=== PATIENT | female | born 1940 | race Caucasian/White ===

== ENCOUNTER → 2021-09-04 16:00 | Outpatient (CLI) | payer MEDICARE, OTHER, SELFPAY ==
--- NOTE | 2021-09-04 16:45 | MRI_ITS ---
STUDY: MRI LUMBAR SPINE WITHOUT CONTRAST REASON FOR EXAM: Female, 81 years old. STENOSIS TECHNIQUE: Standardized fat and water weighted pulse sequences were obtained in the sagittal and axial planes. COMPARISON: None FINDINGS: T12-L1: Normal endplates. Mild disc bulge. Normal bilateral facet joints. Normal central canal and bilateral lateral recesses. Normal bilateral intervertebral neural foramina. Normal lumbar lordosis. Bilateral L5 pars defects with grade 1 anterolisthesis on S1. Dextroscoliosis centered on L2. Normal conus medullaris that terminates at the level of L2 L1-2: Normal endplates. Disc bulge. Mild bilateral facet arthrosis.. Normal central canal and bilateral lateral recesses. Normal bilateral intervertebral neural foramina. L2-3: MODIC type II endplate change. Disc height loss and bulge with ligamentum flavum buckling. Mild bilateral facet arthrosis. Mild/moderate spinal canal stenosis with crowding of the left more than right lateral recesses. Normal bilateral intervertebral neural foramina. L3-4: MODIC type II endplate change. Disc height loss and bulge. Mild bilateral facet arthrosis. Mild neural foraminal stenosis and crowding of the right more than left lateral recesses. Normal bilateral intervertebral neural foramina. L4-5: MODIC type II endplate change. Disc height loss and posterior osteophytic ridging. Mild bilateral facet arthropathy. Mild spinal canal stenosis with crowded bilateral lateral recesses. Mild right neural foraminal stenosis. L5-S1: Endplate edema. Disc bulge and ligamentum flavum buckling. Mild bilateral facet arthropathy. Mild spinal canal stenosis. Severe right and moderate left neural foraminal stenosis. Normal visualized sacral ala. There is mild paraspinal muscular atrophy. Right renal cyst. MRI/Spine Lumbar (Routine) IMPRESSION: Severe right and moderate left neural foraminal stenosis at L5-S1. Multilevel mild to moderate spinal canal stenosis, most prominent at L2-3, and multilevel lateral recess crowding. Bilateral L5 pars defects. Extensive degenerative change detailed above. Electronically Signed: Barber Louise MD at 4:25 EDT Tel , Service support ,
== END ==
PROVIDERS: Referring Provider Anesthesiology Pain Medicine; Visit Provider Anesthesiology Pain Medicine
DX: M54.16 Radiculopathy, lumbar region (principal)
CPT/HCPCS: 72148

== ENCOUNTER → 2021-10-29 12:52 | Outpatient (CLI) | payer MEDICARE, OTHER, SELFPAY ==
--- NOTE | 2021-10-29 13:00 | RAD_ITS ---
STUDY: XR Shoulder Min 2 Views REASON FOR EXAM: Female, 81 years old. PAIN TECHNIQUE: XR Shoulder Min 2 Views left COMPARISON: None. 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 There is degenerative arthrosis of the acromioclavicular joint without inferior osseous spur formation. Normal acromion. Normal humeral head and visualized proximal humerus. The soft tissue structures are unremarkable. Normal visualized pulmonary apex. RAD/Shoulder min 2 Views IMPRESSION: There is degenerative arthrosis of the acromioclavicular joint without inferior osseous spur formation. 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 Electronically Signed: Lon Hamilton MD at 16:10 EST , Service support ,
== END ==
PROVIDERS: Referring Provider Anesthesiology Pain Medicine; Visit Provider Anesthesiology Pain Medicine
DX: M25.512 Pain in left shoulder (principal)
CPT/HCPCS: 73030

== ENCOUNTER 2022-01-16 13:02 | Outpatient (CLI) | payer MEDICARE, OTHER, SELFPAY ==
--- NOTE | 2022-01-16 13:15 | MRI_ITS ---
STUDY: MRI LEFT SHOULDER REASON FOR EXAM: Left shoulder pain and limited range of motion for approximately 8 months. TECHNIQUE: Standardized fat and water weighted pulse sequences were obtained in all 3 orthogonal planes. COMPARISON: Radiographs 10/29/2021. FINDINGS: There is mild supraspinatus/infraspinatus tendinosis (T2 coronal images 7-11) without discrete tendon tear. There is mild subscapularis tendinosis (T2 axial image 11) without discrete tendon tear. Normal teres minor tendon. Normal supraspinatus muscle. Normal infraspinatus muscle. Normal subscapularis muscle. Normal teres minor muscle. There is advanced glenohumeral arthrosis with marginal osteophytes of the humeral head, subchondral cystic change and bone edema of the humeral head and glenoid, and chondral loss (T2 coronal images 9-12). There is posterior subluxation of the glenohumeral joint (T2 axial image 13). There is a small glenohumeral joint effusion with synovitis (T2 coronal image 15). Normal intracapsular long biceps tendon. There is degeneration of the labrum. There is acromioclavicular arthrosis without substantial undersurface osteophytes (T2 sagittal image 8). There is a Type I morphology (flat undersurface), with a neutral orientation. There is no subacromial-subdeltoid bursal fluid. Normal visualized coracohumeral and coracoacromial ligaments. Normal deltoid muscle. Normal trapezius muscle. MRI/Upper Ext Joint Only(Routine) IMPRESSION: Mild supraspinatus, infraspinatus and subscapularis tendinosis without demonstrated rotator cuff tear. 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 Acromioclavicular arthrosis. Small joint effusion with synovitis. Electronically Signed: Demetirus Temple MD at 8:57 EST ,
== END 2022-01-16 23:59 | disposition home or self-care (01) ==
PROVIDERS: Referring Provider Anesthesiology Pain Medicine; Visit Provider Anesthesiology Pain Medicine
DX: M25.512 Pain in left shoulder (principal)
CPT/HCPCS: 73221

== ENCOUNTER 2023-07-25 10:53 | Emergency (ER) | payer MEDICARE, OTHER, SELFPAY ==
[2023-07-25] VITALS (7 sets, daily range): BP systolic 150–183; BP diastolic 78–87; PULSE 69–79; RESP 14–19; TEMP 36.1; O2SAT 100; BMI 25.2
--- NOTE | 2023-07-25 11:39 | EDS_ITS ---
HPI History of Present Illness Chief Complaint: Hypertension Onset/Context/Timing Onset: Days (2) Context: Sudden Onset Timing: Continuous Quality: Aching Location: Right shoulder and upper arm Worsened by: Standing, moving Relieved by: Nothing Narrative Narrative: Patient presents with pain in her right shoulder and arm that has been constant for the past 2 days. Patient states she was getting up from a chair and felt some pain in her arm. Patient states it was a dull at that time. Patient states that the next day when she woke up her pain was sharp and aching. Patient states it starts in the right shoulder and radiates to her right upper arm. Patient states it is worse with standing and with moving. Patient denies any paresthesias or weakness. Patient states her arm feels weak at times due to the pain. [facility] Medical History (Updated 07/25/23 @ 13:[address] Markell Mcdonough, ) Hypercholesteremia Hypertension Medical History no medical history no medical history Home Medications Toprol Xl (Beta Skylar) 50 mg PO QHS 10/24/16 [History Last Taken 10/26/16 09:00] aspirin 81 mg chewable tablet 81 mg PO DAILY@0800 10/24/16 [History Last Taken 10/26/16 08:00] atorvastatin 40 mg tablet 80 mg PO QHS 10/24/16 [History Last Taken 10/23/16 22:30] isosorbide mononitrate 30 mg tablet,extended release 24 hr 30 mg PO DAILY 10/24/16 [History Last Taken 10/26/16 09:00] lisinopril 10 mg tablet 10 mg PO DAILY 10/24/16 [History Last Taken 10/26/16 09:00] acetaminophen 500 mg tablet 1,000 mg (2 x 500 mg) PO Q8 10/31/16 [Rx Last Taken Unknown] hydrocodone-acetaminophen 5-325mg 5mg-325mg 1 tab PO Q6H PRN PRN Pain 3 days #10 TABLETS 07/25/23 [Rx Last Taken Unknown] Allergy/AdvReac Type Severity Reaction Status Date / Time hydrocodone Allergy change in Verified 07/25/23 11:03 mental status Sulfa (Sulfonamide Allergy Hives Verified 07/25/23 11:03 Antibiotics) Surgical History (Updated 07/25/23 @ 11:[address] Markell Mcdonough DO) History of total replacement of left shoulder joint Hx of cardiac cath Social History Smoking Status: Never smoker ROS ROS ED Constitutional Constitutional ED: Denies chills or fever(s) Eyes Eyes: Denies blurry vision or change in vision ENT ENT ED: Denies rhinorrhea or sore throat Cardiovascular Cardiovascular: Denies chest pain or palpitations Respiratory/Chest Respiratory/Chest: Denies cough or dyspnea Gastrointestinal Gastrointestinal: Denies nausea or vomiting Genitourinary Genitourinary ED: Denies dysuria or hematuria Musculoskeletal Musculoskeletal: Reports back pain and neck pain Integumentary Denies abscess or rash Neurologic Neurologic: Denies headache(s) or weakness Allergic/Immunologic Allergic/Immunologic ED: Denies mouth swelling or urticaria EXAM Physical Exam Const Vital Signs: 07/25/23 10:55 07/25/23 11:08 07/25/23 11:10 Temperature 96.9 F L Temperature Source Temporal Pulse Rate 79 69 Respiratory Rate 18 17 Respiratory Effort Normal Non-Labored Respiratory Pattern Normal Blood Pressure 177/79 H 183/84 H Blood Pressure Mean 111 117 Pulse Ox 100 Oxygen Delivery Method Room Air Room Air 07/25/23 11:15 07/25/23 11:16 07/25/23 11:36 Temperature Temperature Source Pulse Rate 71 70 Respiratory Rate 14 19 H Respiratory Effort Normal Non-Labored Respiratory Pattern Blood Pressure 164/81 H 165/79 H Blood Pressure Mean 108 107 Pulse Ox Oxygen Delivery Method Room Air Room Air 07/25/23 13:00 Temperature Temperature Source Pulse Rate 71 Respiratory Rate 19 H Respiratory Effort Respiratory Pattern Blood Pressure 150/78 H Blood Pressure Mean 102 Pulse Ox Oxygen Delivery Method Room Air Positive well nourished and well developed General Appearance ED: well developed and NAD HEENT Reports moist mucous membranes Neck supple and no JVD Resp normal respiratory effort and clear to auscultation bilaterally Cardio regular rate, regular rhythm and no murmurs GI normal to inspection, nondistended, normoactive bowel sounds and non-tender Palpation: soft Back/Spine Back/Spine Narrative: There is tenderness over the right cervical paraspinal muscles and right trapezius muscle. There is no midline tenderness. There is no bony crepitance or step-off. Range of motion was slightly limited in all motions of the cervical spine secondary to pain. Extremity normal to inspection Extremity Narrative: There is tenderness to palpation over the right shoulder. There is no edema or ecchymosis. There is no bony crepitance or step-off. There is full range of motion. There is no reproducible tenderness over the upper arm. Radial pulses are equal bilaterally. Strength is 5/5 in the upper extremities bilaterally. There are no sensory deficits noted. General Extremety ED: Yes tenderness; Negative for edema General Extremity: Negative for edema Neuro oriented x3, CN's II-XII intact bilaterally and no sensory deficits noted Sensorium / Orientation: alert Motor Exam: strength 5/5 throughout Psych mental status grossly normal Skin no rashes or lesions noted MDM MDM MDM Narrative Medical decision making narrative: Differential diagnosis includes radiculopathy, hypertensive urgency, and arthritis. CT scan of the cervical spine will be obtained to assess for degenerative changes, fracture, and spondylolisthesis. CBC will be obtained to assess for leukocytosis and anemia. Basic metabolic profile will be obtained to assess for electrolyte abnormality and renal function. High-sensitivity troponin will be obtained to assess for cardiac ischemia. Lab Data Attestation: I reviewed the patient's lab results. Lab results narrative: CBC was reviewed and was within normal limits. Basic metabolic profile was reviewed and was within normal limits. High-sensitivity troponin was reviewed and was normal. Labs: Laboratory Results - last 24 hr 07/25/23 11:58 WBC 6.4 RBC 4.24 Hgb 12.8 Hct 39.9 MCV 94.1 MCH 30.2 MCHC 32.1 RDW Std Deviation 43.8 RDW Coeff of Yesi 12.7 Plt Count 152 MPV 10.2 Immature Gran % (Auto) 0.200 Neut % (Auto) 75.5 H Lymph % (Auto) 16.1 L [place] % (Auto) 7.3 Eos % (Auto) 0.3 Baso % (Auto) 0.6 Absolute Neuts (auto) 4.8 Absolute Lymphs (auto) 1.03 Nucleated RBC % 0 Sodium 139 Potassium 4.3 Chloride 108 H Carbon Dioxide 26.0 Anion Gap 5 BUN 24 H Creatinine 1.06 H Estim Creat Clear Calc 28.88 Est GFR (MDRD) Af Amer 64 Est GFR (MDRD) Non-Af 53 L BUN/Creatinine Ratio 22.6 H Glucose 108 H Calcium 9.4 Troponin I High Sens 6 Radiography Diagnostic Testing: Clinical Impression(s) from Imaging Studies Cervical Spine CT 07/25/23 11:45 IMPRESSION: Multilevel degenerative changes, as described above. Diffuse heterogeneous enlargement of the thyroid gland. Electronically Signed: Zelalem Gee MD at 12:27 EDT , CT scan of the cervical spine was obtained. There are degenerative changes. Mostly at the level of C3-C4, C4-C5, and C5-C6. There is moderate degree of neuroforaminal stenosis that is worse on the right. There is no acute fracture. This was interpreted by the radiologist and was also independently reviewed by myself. Treatment and Re-Evaluation :: Patient's blood pressure improved after arrival to the emergency department. Repeat blood pressure was 150/78. Patient was advised of her findings. Patient was advised that this most likely a cervical radiculopathy. Patient states she can take hydrocodone but thinks it was oxycodone that caused her to have an altered mental status. Patient states she took Vicodin after her shoulder surgery and tolerated it well. Patient was given a prescription for a short c ourse of Vicodin. Patient was instructed to use ice to the area. Patient was instructed to follow-up with her primary care physician in 5 to 7 days. Patient understood and was agreeable with the plan. All questions were answered. Discharge Plan Triage Chief Complaint: Hypertension Other Complaint: Upper Extremity Injury ED Provider: Markell Mcdonough Dx/Rx/DC Orders Clinical Impression: Cervical radiculopathy, Degenerative disc disease, cervical Instructions: ED Radiculopathy, Cervical Prescriptions: New hydrocodone-acetaminophen [hydrocodone-acetaminophen] 5-325 mg tablet 1 tab PO Q6H PRN PRN (Reason: Pain) 3 Days Qty: 10 0RF No Action atorvastatin 40 MG tablet 80 mg PO QHS Patient Comments: treat high cholesterol isosorbide mononitrate 30 MG tablet 30 mg PO DAILY Patient Comments: prevent chest pain lisinopril 10 MG tablet 10 mg PO DAILY Patient Comments: high blood pressure Toprol Xl (Beta Skylar) 50 mg PO QHS Patient Comments: high blood pressure aspirin 81 MG tablet,chewable 81 mg PO DAILY@0800 acetaminophen 500 MG tablet 1,000 mg PO Q8 0RF Primary Care Provider: CLARISSE SMITH Referrals: CLARISSE SMITH [Other] - 5-7 Days NOT,DEFINED [Non-Staff] - Disposition Disposition: Home, Self Care
--- NOTE | 2023-07-25 11:45 | CT_ITS ---
STUDY: CT CERVICAL SPINE WITHOUT CONTRAST REASON FOR EXAM: Female, 83 years old. 2 day history of right arm pain. RADIATION DOSAGE (If Supplied By Facility): CTDIvol = ( 14.42 ) mGy, DLP = ( 276.33 ) mGycm TECHNIQUE: High resolution transaxial imaging was performed without contrast material. Sagittal and coronal images were reconstructed. Individualized dose optimization techniques were used for this CT. COMPARISON: None FINDINGS: Normal craniovertebral junction. There are degenerative changes of the anterior atlantoaxial articulation. Normal odontoid process. There is straightening of the normal cervical lordosis. Multilevel spondylosis. C2-3: Normal endplates. Normal disc height and morphology. Normal central canal and intervertebral neuroforamina. C3-4: Marked degree of disc space narrowing. Uncovertebral arthrosis. Moderate bilateral neuroforaminal stenosis worse on the right side. C4-5: Marked degree of disc space narrowing and spondylosis. Uncovertebral arthrosis. Moderate degree of bilateral neural foraminal stenosis as well as left sided central canal stenosis due to large posterior osteophyte. C5-6: Marked degree of disc space narrowing and spondylosis. Uncovertebral arthrosis. Posterior spondylosis. Bilateral neural foraminal and central canal stenosis. C6-7: Moderate degree of disc space narrowing. Spondylosis. C7-T1: Normal endplates. Normal disc height and morphology. Normal central canal and intervertebral neuroforamina. Atherosclerotic plaque formation of the carotid bifurcations. Diffuse heterogeneous enlargement of the thyroid gland. CT/Spine Cervical without Contras IMPRESSION: Multilevel degenerative changes, as described above. Diffuse heterogeneous enlargement of the thyroid gland. Electronically Signed: Zelalem Gee MD at 12:27 EDT ,
[2023-07-25 12:04] LABS: Absolute Lymphocyte Count 1.03 X10^3/uL (0.83-4.51); Absolute Neutrophil Count 4.8 X10^3/uL (2.0-7.7); Basophil# 0.04 X10^3/uL; Basophil% 0.6 % (0-1); Eosinophil# 0.02 X10^3/uL; Eosinophils% 0.3 % (0-5); Hematocrit 39.9 % (37-47); Hemoglobin 12.8 g/dL (12.0-15.0); Lymphocyte # 1.03 X10^3/ul (0.83-4.51); Lymphocyte % 16.1 % (19-41); Mean Corp Hgb Conc 32.1 g/dL (32-36); Mean Corpuscular Hgb 30.2 pg (27.0-32.0); Mean Corpuscular Volume 94.1 fL (81-99); Mean Platelet Vol. 10.2 fl (6.2-12.0); Monocyte# 0.47 X10^3/uL; Monocyte% 7.3 % (0-10); NRBC Flagged by Analyzer 0 % (0-5); Neutrophil # 4.83 X10^3/uL (2.7-7.7); Neutrophil % 75.5 % (47-70); Platelet Count 152 K/mm3 (150-450); RBC Distribution Width CV 12.7 % (11.6-14.6); RBC Distribution Width SD 43.8 fl (35.1-43.9); Red Blood Count 4.24 M/mm3 (4.2-5.4); White Blood Count 6.4 K/mm3 (4.4-11.0)
[2023-07-25 12:19] LABS: Anion Gap 5 (5-15); BUN 24 mg/dL (7-18); BUN/Creat Ratio 22.6 RATIO (10-20); Calcium,Total 9.4 mg/dL (8.5-10.1); Chloride 108 mmol/L (98-107); Creatinine, Serum 1.06 mg/dL (0.55-1.02); EST Glomerular Filtration Rate 53 mL/min (>60); Est Glom Filt Rate - Afr Amer 64 mL/min (>60); Estimated Creatinine Clearance 28.88 ml/min; Glucose 108 mg/dL (74-106); Potassium 4.3 mmol/L (3.5-5.1); Sodium Level 139 mmol/L (136-145); Troponin-I HS 6 pg/mL (3.0-54.0)
== END 2023-07-25 14:14 | disposition home or self-care (01) ==
PROVIDERS: Emergency Provider Emergency Medicine; Visit Provider Emergency Medicine
DX: M50.10 Cervical disc disorder with radiculopathy, unspecified cervical region (principal); I10 Essential (primary) hypertension
CPT/HCPCS: 72125; 80048; 84484; 85025; 99285; A4216

== ENCOUNTER → 2024-11-29 | Outpatient (CLI) | payer MEDICARE, OTHER, SELFPAY ==
[2024-11-29 11:41] LABS: Hematocrit 39.1 % (37-47); Hemoglobin 12.6 g/dL (12.0-15.0); Mean Corp Hgb Conc 32.2 g/dL (32-36); Mean Corpuscular Hgb 30.9 pg (27.0-32.0); Mean Corpuscular Volume 95.8 fL (81-99); Mean Platelet Vol. 9.8 fl (6.2-12.0); Platelet Count 166 K/mm3 (150-450); RBC Distribution Width CV 12.3 % (11.6-14.6); RBC Distribution Width SD 43.8 fl (35.1-43.9); Red Blood Count 4.08 M/mm3 (4.2-5.4); White Blood Count 5.8 K/mm3 (4.4-11.0)
[2024-11-29 12:33] LABS: AST(SGOT) 28 U/L (15-37); Alanine Aminotransfer ALT/SGPT 8 U/L (13-56); Alkaline Phosphatase 126 U/L (45-117); Anion Gap 5 (5-15); BUN 25 mg/dL (7-18); Calcium,Total 9.4 mg/dL (8.5-10.1); Chloride 108 mmol/L (98-107); Creatinine, Serum 1.04 mg/dL (0.55-1.02); EST Glomerular Filtration Rate 54 mL/min (>60); Est Glom Filt Rate - Afr Amer 65 mL/min (>60); Globulin 3.9 g/dL (2.2-4.2); Glucose 89 mg/dL (74-106); Protein, Total 7.9 g/dL (6.4-8.2); Sodium Level 140 mmol/L (136-145)
[2024-11-29 14:39] LABS: Vitamin B12 509 pg/mL (211-911)
--- NOTE | 2024-11-29 19:54 | MRI_ITS ---
EXAM: MR HEAD WITHOUT INTRAVENOUS CONTRAST CLINICAL INDICATION: Parkinson''s disease, CHANGES IN GAIT AND HANDWRITING TECHNIQUE: Multiplanar and multisequence MR images of the brain were obtained without intravenous contrast. COMPARISON: No relevant prior studies available. FINDINGS: BRAIN AND EXTRA-AXIAL SPACES: No restricted diffusion to indicate acute ischemia. Increased T2 signal intensity within the cerebral white matter suggestive of chronic microvascular change. Bilateral globus pallidus lesions are seen which may represent changes related to chronic anoxia or metabolic disorder. Increased T2 signal intensity within the cerebral white matter suggestive of chronic microvascular change. Prominence of the cortical sulci and ventricles related to volume loss change. Posterior fossa is normal. Basilar cisterns are patent. SELLA: Normal. Normal sella turcica, pituitary gland, infundibular stalk, optic chiasm and hypothalamus. AUDITORY SYSTEM: Normal. The internal auditory canals are patent. BONES/JOINTS: Intact calvarium. SINUSES: Unremarkable as visualized. Clear. MASTOID AIR CELLS: Clear. ORBITS: Unremarkable as visualized. Both globes, extraocular muscles, optic nerves and retrobulbar fat appear unremarkable. VASCULATURE: Unremarkable as visualized. Normal flow voids in the major intracranial circulation. MRI/Brain without Contrast IMPRESSION: No acute intracranial abnormality. Chronic changes as described. Electronically Signed: Byron Zelaya MD at 17:03 EST ,
[2024-12-04 20:07] LABS: Free Kappa Light Chains 29.8 mg/L (3.3-19.4); Free Lambda Light Chains 22.8 mg/L (5.7-26.3); Vitamin B1, Thiamine 156.2 nmol/L (66.5-200.0)
== END | disposition home or self-care (01) ==
PROVIDERS: PCP Family Medicine; Referring Provider Psychiatry & Neurology Neurology; Visit Provider Psychiatry & Neurology Neurology
DX: I10 Essential (primary) hypertension (principal); G20.A1 Parkinson's disease without dyskinesia, without mention of fluctuations; G62.9 Polyneuropathy, unspecified

== ENCOUNTER → 2025-01-24 | Outpatient (CLI) | payer MEDICARE, OTHER, SELFPAY | END | disposition home or self-care (01) | LOC: MTLAB 14:18 | PROVIDERS: PCP Family Medicine; Referring Provider Psychiatry & Neurology Neurology; Visit Provider Psychiatry & Neurology Neurology | DX: G62.9 Polyneuropathy, unspecified (principal) | CPT/HCPCS: 36415; 82040; 82042; 82784; 86335 ==

== ENCOUNTER → 2025-07-28 | Outpatient (CLI) | payer MEDICARE, OTHER, SELFPAY ==
[2025-08-02 15:08] LABS: Albumin 3.6 g/dL (2.9-4.4); Gamma Globulin 1.3 g/dL (0.4-1.8); Immunoglobulin A 340 mg/dL (64-422); Immunoglobulin G 1277 mg/dL (586-1602); Immunoglobulin M 68 mg/dL (26-217); PROEL- TOTAL PROTEIN 7.1 g/dL (6.0-8.5)
== END | disposition home or self-care (01) ==
LOC: MTLAB 14:12
PROVIDERS: PCP Family Medicine; Referring Provider Psychiatry & Neurology Neurology; Visit Provider Psychiatry & Neurology Neurology
DX: G62.9 Polyneuropathy, unspecified (principal)
CPT/HCPCS: 36415; 82784; 84165; 86334